=== PATIENT | male | born 1995 | race Caucasian/White ===

== ENCOUNTER 2021-07-04 03:40 | Emergency (ER) | payer SELFPAY ==
[2021-07-04 03:59] VITALS: O2SAT 100
[2021-07-04] MEDS ORDERED: Zofran 4 MG/2 ML VIAL IV ONE (04:08)
[2021-07-04] MEDS ORDERED: Sodium Chloride 0.9% 1000 ML 1,000 ML IV STA (04:08)
[2021-07-04] MEDS ORDERED: Pepcid 20 MG VIAL IV ONE ×2 (04:08→04:26)
--- NOTE | 2021-07-04 04:13 | ERPHSYRPT ---
<TATIANATORIBIO - Last Filed: 07/04/21 07:27> - History of Present Illness Source: patient, EMS, police Exam Limitations: intoxication Patient Subjective Stated Complaint: officer states "He was in his truck, intoxicated, with his pants down." Triage Nursing Assessment: pt came into the er via ambulance; pt is axo x3; c/o ETOH; pt states that he rarely drinks; ems states "He lives in [facility] and needs to sleep it off."; pt denies pain; pt has no complaints; pt is acting aggressive and hostile to staff; pt actively vomiting; active bowel sounds; ETOH; vitals wnl Timing/Duration: today Severity: moderate Associated Symptoms: vomiting Hx Tetanus, Diphtheria Vaccination/Date Given: Yes Hx Influenza Vaccination/Date Given: No Hx Pneumococcal Vaccination/Date Given: No Immunizations Up to Date: No <AIMEE KNOX - Last Filed: 07/05/21 08:05> - History of Present Illness Time Seen by Provider: 07/04/21 04:08 Physician History: 26 years old healthy male is brought in the ER by EMS after PD found him passed out in his track with his pants off. Patient reports he did vomited after drinking. Reports does not drink every day but occasionally and did have 9 shots, started to feel nauseated and vomited. Denies any abdominal pain now but did have an episode of mild nonprojectile, nonbilious emesis on presentation in ER. On my evaluation patient denies any chest pain palpitations or shortness of breath. Denies any fall or hitting his head. Moving all 4 extremities. Patient is sleepy but answering questions appropriately. Does not want any lab work or imaging done. (AIMEE KNOX) Allergies/Adverse Reactions: Penicillins Allergy (Verified 07/04/21 03:46) Rash Home Medications: No Reportable Medications [No Reported Medications] 07/04/21 [History] Travel Risk - International Travel Have you traveled outside of the country in past 3 weeks: No - Coronavirus Screening Are you exhibiting any of the following symptoms?: No Close contact with a COVID-19 positive Pt in past 14-21 Days: Yes - Vaccine Status Have you recieved a Covid-19 vaccination: No <AIMEE KNOX - Last Filed: 07/05/21 08:05> - Review of Systems All Other Systems: Unable due to condition <AIMEE KNOX - Last Filed: 07/05/21 08:05> - Past Medical History Pertinent Past Medical History: No - Past Surgical History Past Surgical History: No - Social History Smoking Status: Current every day smoker Exposure to second hand smoke: Yes Drug Use: none Patient Lives Alone: No <AIMEE KNOX - Last Filed: 07/05/21 08:05> - Physical Exam General Appearance: no apparent distress, other (Sleepy but arousable) Eye Exam: PERRL/EOMI, eyes nml inspection Ears, Nose, Throat Exam: TMs normal, moist mucous membranes, pharyngeal erythema Neck Exam: normal inspection, non-tender, supple, full range of motion Respiratory Exam: normal breath sounds, lungs clear Cardiovascular Exam: regular rate/rhythm, normal heart sounds Gastrointestinal/Abdomen Exam: soft, normal bowel sounds, No tenderness Extremity Exam: normal inspection, normal range of motion, pelvis stable 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, other (Sleepy but arousable), No normal mood/affect Skin Exam: normal color SpO2 Interpretation: normal SpO2: 100 O2 Delivery: Room Air <AIMEE KNOX - Last Filed: 07/05/21 08:05> - Nursing Vital Signs Nursing Vital Signs: Initial Vital Signs Temperature 97.6 F 07/04/21 03:46 Pulse Rate 89 07/04/21 03:46 Respiratory Rate 16 07/04/21 03:46 Blood Pressure 116/67 07/04/21 03:46 O2 Sat by Pulse Oximetry 100 07/04/21 03:46 Pain Scale Pain Intensity 0 Ordered Tests: Medication Summary Discontinued Medications Generic Name Dose Route Start Last Admin Trade Name Freq PRN Reason Stop Dose Admin Famotidine 20 mg 07/04/21 04:08 07/04/21 04:29 Pepcid 20 Mg Vial IV 07/04/21 04:09 20 mg STAT ONE Administration Famotidine Confirm 07/04/21 04:26 Pepcid 20 Mg Vial Administered 07/04/21 04:27 Dose 20 mg IV .STK-MED ONE Sodium Chloride 1,000 mls @ 999 mls/hr 07/04/21 04:08 07/04/21 05:42 Sodium Chloride 0.9% 1000 Ml IV 07/04/21 05:08 Infused .Q1H1M STA Infusion Sodium Chloride Confirm 07/04/21 04:26 Sodium Chloride 0.9% 1000 Ml Administered 07/04/21 04:27 Dose 1,000 mls @ ud .ROUTE .STK-MED ONE Ondansetron HCl 4 mg 07/04/21 04:08 07/04/21 04:29 Zofran 4 Mg/2 Ml Vial IV 07/04/21 04:09 4 mg STAT ONE Administration Ondansetron HCl Confirm 07/04/21 04:26 Zofran 4 Mg/2 Ml Vial Administered 07/04/21 04:27 Dose 4 mg .ROUTE .STK-MED ONE - Progress Progress: improved Counseled pt/family regarding: drug and/or alcohol abuse <TORIBIO SIMPSON - Last Filed: 07/04/21 07:27> <AIMEE KNOX - Last Filed: 07/05/21 08:05> - Progress Progress Note: 07/04/21 07:27 Patient is much more alert. Patient is answering all the question appropriately. I asked again patient to get some blood test done but he refused. Patient and his family are new to this area. We are trying to get hold of his sister who lives in [place]. We will try to get hold of side of department to get hold of the family members, so that they can pick him up. (TORIBIO SIMPSON) 07/04/21 06:53 26 years old is evaluated for intoxication. Patient is sleepy on presentation but arousable and answering questions appropriately and falls back asleep. No obvious signs of trauma. Recommended work-up, fluids and he refused to have anything done. Patient states "I want to sleep off my alcohol." Vitals are stable. Just a few minutes ago patient walked out of the room to go to bathroom and later on entered and nursing break home and was eating stuff there. Does not have any focal weakness. He is much awake but still would not let him go on his own, does not have any family member who can pick him up. Care is transferred to at shift change. (AIMEE KNOX) - Departure Departure Disposition: Home Critical Care Time: Yes Critical Care Time(excluding separately billable procedures): Critical 30-74 mins <TORIBIO SIMPSON - Last Filed: 07/04/21 07:27> - Departure Critical Care Time: No <AIMEE KNOX - Last Filed: 07/05/21 08:05> - Departure Clinical Impression: Alcohol intoxication Qualifiers: Complication of substance-induced condition: with unspecified complication Qualified Code(s): F10.929 - Alcohol use, unspecified with intoxication, unspecified Condition: Stable Referrals: ROBBIN BARRAZA [ACTIVE STAFF] - Follow Up with PCP/3 days Instructions: Alcohol Abuse and Alcoholism (DC) Additional Instructions: Do not drink alcohol. Take Zofran as needed. Follow-up with primary care for reevaluation. Return to ER if having abdominal pain, vomiting/not acting himself. Discharge/Care Plan DANNY LUNA was seen on 07/04/21 in the Emergency Room. The patient was counseled regarding Diagnosis,Lab results, Imaging studies, need for follow up and when to return to the Emergency Room. Prescriptions given: Discharge Note I have spoken with the patient and/or caregivers. I have explained the patient's condition, diagnosis and treatment plan based on the information available to me at this time. I have answered the patient's and/or caregiver's questions and addressed any concerns. The patient and/or caregivers have as good understanding of the patient's diagnosis, condition and treatment plan as can be expected at this point. The vital signs have been stable. The patient's condition is stable and appropriate for discharge from the emergency department. The patient will pursue further outpatient evaluation with the primary care physician or other designated or consulting physician as outlined in the discharge instructions. The patient and/or caregivers are agreeable to this plan of care and follow-up instructions have been explained in detail. The patient and/or caregivers have received these instruction. The patient/and or caregivers are aware that any significant change in condition or worsening of symptoms should prompt an immediate return to this or the closest emergency department or call 911. DANNY LUNA was seen on 07/04/21 n the Emergency Room. At that time you were treated for an emergent condition, during your visit Laboratory, Radiology and/or other procedures may have been ordered. It is very important that you follow-up with your Primary Care Physician NO FAMILY DOCTOR within the next 24- 48 hours to review your Emergency Room visit and the final results of testing that was ordered. Some test results such as Urine Cultures, Blood Cultures, and other cultures if ordered will not be finalized for 24-48 hours. If you do not have a Primary Care Provider please call the medical records department at [phone] ext [phone] to obtain a copy of your results or you may sign into our patient portal to obtain these results by visiting us @ [email or web address] and completing the following steps: 1. Click on the Patient Portal link 2. Click the Patient Self Enrollment Link to complete the enrollment form and entering your 3. Once the enrollment form is completed you will receive an email with a temporary ID and password at the email address you provided. 4. Next choose a user name and password. Your user name must be at least 4 characters long and your password must be at least 4 characters long. 5. Choose a security question from the list and provide your answer to the question. If you already have signed into the Health Portal you may access your Health Care Information 01/05 by the following steps: 1. Login to our website @ [email or web address] 2. Enter your original user name and password. FAQS The [facility] Portal is an online tool that contains your Lab Results, Radiology Reports, Visit History, Discharge Instructions and Health Summary Lab and Radiology Results will not be available for 72 hours on the portal. The Portal is a secure site, passwords are encryted and URLs are re-written so they cannot be copied and pasted. You and authorized family members are the only ones who can access your Portal. Also there is a timeout feature that protects your information if you leave the Portal page open. If you have technical difficulty please use the Contact Us link on the page this will allow you to submit any questions you have regarding the Portal or you may contact the Medical Record Department at [phone] ext [phone].
[2021-07-04] MEDS ORDERED: Sodium Chloride 0.9% 1000 ML 1,000 ML ONE (04:26)
[2021-07-04] MEDS ORDERED: Zofran 4 MG/2 ML VIAL ONE (04:26)
[2021-07-04 07:44] VITALS: BP 99/57; PULSE 72
== END 2021-07-04 08:52 | disposition home or self-care (01) ==
LOC: ED 03:40
DX: F10.929 Alcohol use, unspecified with intoxication, unspecified (principal); R11.2 Nausea with vomiting, unspecified
CPT/HCPCS: 36000; 96360; 96374; 96375; 99284; 99291; J2405